=== PATIENT | male | born 1965 ===

== ENCOUNTER 2021-01-05 15:13 | Inpatient (IN) | payer OTHER ==
[2021-01-05] MEDS ORDERED: MENTHOL/PHENOL 1 EACH UD MM PRN (21:45)
[2021-01-05] MEDS ORDERED: cloNIDine HCL 0.1 MG TABLET PO PRN (21:45)
[2021-01-05] MEDS ORDERED: ACETAMINOPHEN 325 MG TABLET (FP) PO PRN ×2 (21:45)
[2021-01-05] MEDS ORDERED: DICYCLOMINE HCL 10 MG CAPSULE PO PRN (21:45)
[2021-01-05] MEDS ORDERED: MAGNESIUM CITRATE 300 ML BOTTLE PO PRN (21:45)
[2021-01-05] MEDS ORDERED: NICOTINE POLACRILEX 2 MG GUM BUC PRN (21:45)
[2021-01-05] MEDS ORDERED: ONDANSETRON *ODT* 4 MG TABLET SL PRN (21:45)
[2021-01-05] MEDS ORDERED: MAGNESIUM HYDROX 2400MG/30ML ORAL SUSPENSION 30 ML CUP PO PRN (21:45)
[2021-01-05] MEDS ORDERED: METHOCARBAMOL 500 MG TABLET PO PRN (21:45)
[2021-01-05] MEDS ORDERED: NALOXONE HCL 0.4 MG/ML VIAL IM PRN (21:45)
[2021-01-05] MEDS ORDERED: METHADONE HCL 10 MG TABLET (FOR DETOX USE ONLY) PO ONE (21:45)
[2021-01-05] MEDS ORDERED: chlordiazePOXIDE HCL 25 MG CAPSULE PO PRN (21:45)
[2021-01-05] MEDS ORDERED: P-EPHED 60MG/TRIPROLIDI 2.5MG TABLET PO PRN (21:45)
[2021-01-05] MEDS ORDERED: MAG HYDROX/AL HYDROX/SIMETH 30 ML UNIT-DOSE CUP PO PRN (21:45)
[2021-01-05] MEDS ORDERED: BISMUTH SUBSALICYLATE 524 MG/30 ML UD PO PRN (21:45)
[2021-01-05] MEDS ORDERED: guaiFENesin 200 MG/10 ML 10 ML UNIT-DOSE CUPS PO PRN (21:45)
[2021-01-05 21:48] VITALS: BMI 18.1
[2021-01-05] MEDS: THIAMINE HCL 100 MG TABLET (FP) PO SCH (23:12)
[2021-01-05] MEDS: MELATONIN 5 MG TABLETS PO SCH (23:12)
[2021-01-05] MEDS ORDERED: chlordiazePOXIDE HCL 25 MG CAPSULE ONE (23:12)
[2021-01-05] MEDS ORDERED: METHADONE HCL 10 MG TABLET (FOR DETOX USE ONLY) ONE (23:12)
[2021-01-05] MEDS: chlordiazePOXIDE HCL 25 MG CAPSULE PO SCH (23:13)
[2021-01-06] MEDS ORDERED: chlordiazePOXIDE HCL 25 MG CAPSULE ONE (05:32)
[2021-01-06] MEDS: chlordiazePOXIDE HCL 25 MG CAPSULE PO SCH ×4 (05:36→22:30)
[2021-01-06] MEDS ORDERED: METHADONE (DETOX) 20 MG, METHADONE (DETOX) 5 MG PO ONE (10:00)
[2021-01-06] MEDS ORDERED: METHADONE HCL 5 MG TABLET (FOR DETOX USE ONLY) ONE (10:01)
[2021-01-06] MEDS ORDERED: METHADONE HCL 10 MG TABLET (FOR DETOX USE ONLY) ONE (10:01)
[2021-01-06] MEDS: ERYTHROMYCIN 0.5% OPHTHALMIC OINTMENT 3.5 GM TUBE OD SCH (10:03)
[2021-01-06] MEDS: PRENATAL VITAMINS W/ FOLIC ACID TABLET (FP) PO SCH (10:04)
[2021-01-06] MEDS: NICOTINE 21 MG/24 HOURS TOPICAL PATCH TD SCH (10:04)
[2021-01-06 11:41] LABS: HEMATOCRIT 36.4 % (35.4-49); HEMOGLOBIN 11.9 GM/dL (11.7-16.9); MCH 31.8 pg (25.7-33.7); MCHC 32.8 g/dl (32.0-35.9); MEAN PLT VOLUME 8.4 fl (7.5-11.1); PLATELET COUNT 245 K/MM3 (134-434); RBC 3.75 M/mm3 (4.00-5.60); RDW 13.1 % (11.9-15.9); WHITE BLOOD COUNT 6.6 K/mm3 (4.0-10.0)
[2021-01-06 11:49] LABS: POTASSIUM 4.2 mmol/L (3.5-5.1)
[2021-01-06 11:53] LABS: BLOOD UREA NITROGEN 16.7 mg/dL (7-18); CALCIUM 8.5 mg/dL (8.5-10.1)
[2021-01-06 11:54] LABS: ALBUMIN 3.2 g/dl (3.4-5.0)
[2021-01-06 11:57] LABS: CREATININE 0.9 mg/dL (0.55-1.3)
[2021-01-06 11:58] LABS: BILIRUBIN,TOTAL 0.7 mg/dL (0.2-1); TOT PROT 6.1 g/dl (6.4-8.2)
[2021-01-06] MEDS: MELATONIN 5 MG TABLETS PO SCH (22:30)
[2021-01-06] MEDS: THIAMINE HCL 100 MG TABLET (FP) PO SCH (22:30)
[2021-01-07] MEDS: chlordiazePOXIDE HCL 25 MG CAPSULE PO SCH ×4 (05:26→22:52)
[2021-01-07] MEDS: IBUPROFEN 400 MG TABLET (FP) PO PRN (05:27)
[2021-01-07] MEDS ORDERED: METHADONE HCL 10 MG TABLET (FOR DETOX USE ONLY) PO ONE (10:00)
[2021-01-07] MEDS: PRENATAL VITAMINS W/ FOLIC ACID TABLET (FP) PO SCH (10:16)
[2021-01-07] MEDS: NICOTINE 21 MG/24 HOURS TOPICAL PATCH TD SCH (10:18)
[2021-01-07] MEDS: ERYTHROMYCIN 0.5% OPHTHALMIC OINTMENT 3.5 GM TUBE OD SCH (11:47)
[2021-01-07] MEDS ORDERED: LACTULOSE 20 GM/30 ML UDC (FOR ORAL USE ONLY) PO ONE (15:56)
[2021-01-07 16:48] LABS: URINE APPEARANCE CLEAR; URINE BILIRUBIN NEGATIVE (NEGATIVE); URINE COLOR YELLOW; URINE GLUCOSE (UA) NEGATIVE (NEGATIVE); URINE KETONE NEGATIVE (NEGATIVE); URINE LEUK ESTERASE NEGATIVE (NEGATIVE); URINE NITRITE NEGATIVE (NEGATIVE); URINE PROTEIN NEGATIVE (NEGATIVE); URINE UROBILINOGEN 0.2 mg/dL (0.2-1.0)
[2021-01-07] MEDS: THIAMINE HCL 100 MG TABLET (FP) PO SCH (22:49)
[2021-01-07] MEDS: LACTULOSE 20 GM/30 ML UDC (FOR ORAL USE ONLY) PO SCH (22:50)
[2021-01-07] MEDS: MELATONIN 5 MG TABLETS PO SCH (22:52)
[2021-01-08] MEDS ORDERED: chlordiazePOXIDE HCL 10 MG CAPSULE PO PRN
[2021-01-08] MEDS: LACTULOSE 20 GM/30 ML UDC (FOR ORAL USE ONLY) PO SCH ×3 (05:22→22:42)
[2021-01-08] MEDS: chlordiazePOXIDE HCL 10 MG CAPSULE PO SCH ×4 (05:22→22:43)
[2021-01-08] MEDS ORDERED: METHADONE HCL 5 MG TABLET (FOR DETOX USE ONLY) ONE (09:21)
[2021-01-08] MEDS ORDERED: METHADONE HCL 10 MG TABLET (FOR DETOX USE ONLY) ONE (09:21)
[2021-01-08] MEDS ORDERED: METHADONE (DETOX) 10 MG, METHADONE (DETOX) 5 MG PO ONE (10:00)
[2021-01-08] MEDS: ERYTHROMYCIN 0.5% OPHTHALMIC OINTMENT 3.5 GM TUBE OD SCH (10:16)
[2021-01-08] MEDS: PRENATAL VITAMINS W/ FOLIC ACID TABLET (FP) PO SCH (10:17)
[2021-01-08] MEDS: NICOTINE 21 MG/24 HOURS TOPICAL PATCH TD SCH (10:18)
[2021-01-08] MEDS: IBUPROFEN 400 MG TABLET (FP) PO PRN (14:14)
[2021-01-08] MEDS: THIAMINE HCL 100 MG TABLET (FP) PO SCH (22:42)
[2021-01-08] MEDS: MELATONIN 5 MG TABLETS PO SCH (22:42)
[2021-01-09] MEDS: LACTULOSE 20 GM/30 ML UDC (FOR ORAL USE ONLY) PO SCH ×3 (05:34→21:45)
[2021-01-09] MEDS: chlordiazePOXIDE HCL 10 MG CAPSULE PO SCH ×2 (05:34→18:25)
[2021-01-09] MEDS ORDERED: METHADONE HCL 10 MG TABLET (FOR DETOX USE ONLY) PO ONE (10:00)
[2021-01-09] MEDS ORDERED: MASKS NR ONE (10:49)
[2021-01-09] MEDS: NICOTINE 21 MG/24 HOURS TOPICAL PATCH TD SCH (10:50)
[2021-01-09] MEDS: ERYTHROMYCIN 0.5% OPHTHALMIC OINTMENT 3.5 GM TUBE OD SCH (10:50)
[2021-01-09] MEDS: PRENATAL VITAMINS W/ FOLIC ACID TABLET (FP) PO SCH (10:50)
[2021-01-09] MEDS: MELATONIN 5 MG TABLETS PO SCH (21:45)
[2021-01-09] MEDS: THIAMINE HCL 100 MG TABLET (FP) PO SCH (21:45)
[2021-01-10] MEDS ORDERED: chlordiazePOXIDE HCL 10 MG CAPSULE PO ONE (05:00)
[2021-01-10] MEDS: LACTULOSE 20 GM/30 ML UDC (FOR ORAL USE ONLY) PO SCH (05:29)
[2021-01-10] MEDS ORDERED: METHADONE HCL 5 MG TABLET (FOR DETOX USE ONLY) PO ONE (06:00)
[2021-01-10 09:43] VITALS: BP 127/76; PULSE 98; TEMP 99.3
[2021-01-10] MEDS: NICOTINE 21 MG/24 HOURS TOPICAL PATCH TD SCH (10:31)
[2021-01-10] MEDS: PRENATAL VITAMINS W/ FOLIC ACID TABLET (FP) PO SCH (10:33)
[2021-01-10] MEDS: ERYTHROMYCIN 0.5% OPHTHALMIC OINTMENT 3.5 GM TUBE OD SCH (10:33)
== END 2021-01-10 10:53 | disposition other institution (70) | DRG 773 ==
LOC: YASAS 15:13 → Y6N 01-06 09:12
PROVIDERS: ADMIT Allergy & Immunology; ATTEND Allergy & Immunology
PROC: HZ2ZZZZ Detoxification Services for Substance Abuse Treatment (ICD-10-PCS; principal; 2021-01-06)
DX: F11.23 Opioid dependence with withdrawal (principal); F10.230 Alcohol dependence with withdrawal, uncomplicated; F14.20 Cocaine dependence, uncomplicated; F17.210 Nicotine dependence, cigarettes, uncomplicated; E78.5 Hyperlipidemia, unspecified; K21.9 Gastro-esophageal reflux disease without esophagitis; H11.31 Conjunctival hemorrhage, right eye; Z20.1 Contact with and (suspected) exposure to tuberculosis; R79.89 Other specified abnormal findings of blood chemistry; Z91.018 Allergy to other foods; Z59.0 Homelessness
CPT/HCPCS: 36415; 71046-TC-FY; 80053; 81003; 82140; 85027; 86780; 93005; 93010; C9803; Q0162; U0003

== ENCOUNTER 2021-01-10 11:04 | Inpatient (IN) | payer OTHER ==
[2021-01-10] MEDS ORDERED: MAG HYDROX/AL HYDROX/SIMETH 30 ML UNIT-DOSE CUP PO PRN (12:05)
[2021-01-10] MEDS ORDERED: guaiFENesin 200 MG/10 ML 10 ML UNIT-DOSE CUPS PO PRN (12:05)
[2021-01-10] MEDS ORDERED: P-EPHED 60MG/TRIPROLIDI 2.5MG TABLET PO PRN (12:05)
[2021-01-10] MEDS ORDERED: ACETAMINOPHEN 325 MG TABLET (FP) PO PRN (12:05)
[2021-01-10] MEDS ORDERED: MENTHOL/PHENOL 1 EACH UD MM PRN (12:05)
[2021-01-10] MEDS ORDERED: MAGNESIUM HYDROX 2400MG/30ML ORAL SUSPENSION 30 ML CUP PO PRN (12:05)
[2021-01-10] MEDS ORDERED: NICOTINE POLACRILEX 2 MG GUM BUC PRN (12:05)
[2021-01-10] MEDS ORDERED: MAGNESIUM CITRATE 300 ML BOTTLE PO PRN (12:05)
[2021-01-10] MEDS: METHOCARBAMOL 500 MG TABLET PO SCH ×3 (14:16→21:40)
[2021-01-10] MEDS: MELATONIN 5 MG TABLETS PO SCH (21:40)
[2021-01-10] MEDS: LACTULOSE 20 GM/30 ML UDC (FOR ORAL USE ONLY) PO SCH (21:40)
[2021-01-10] MEDS: THIAMINE HCL 100 MG TABLET (FP) PO SCH (21:40)
[2021-01-11] MEDS: LOPERAMIDE HCL 2 MG CAPSULE PO PRN ×2 (06:38→19:48)
[2021-01-11] MEDS ORDERED: NICOTINE 7 MG/24 HOURS TOPICAL PATCH TD SCH (10:00)
[2021-01-11] MEDS: NICOTINE 21 MG/24 HOURS TOPICAL PATCH TD SCH (10:51)
[2021-01-11] MEDS: PRENATAL VITAMINS W/ FOLIC ACID TABLET (FP) PO SCH (10:51)
[2021-01-11] MEDS: METHOCARBAMOL 500 MG TABLET PO SCH ×4 (10:51→21:07)
[2021-01-11] MEDS: LACTULOSE 20 GM/30 ML UDC (FOR ORAL USE ONLY) PO SCH ×3 (10:51→21:07)
[2021-01-11] MEDS: ERYTHROMYCIN 0.5% OPHTHALMIC OINTMENT 3.5 GM TUBE OD SCH (10:57)
[2021-01-11] MEDS: IBUPROFEN 400 MG TABLET (FP) PO PRN (15:09)
[2021-01-11] MEDS: PRAMOXINE HCL/MINERAL OIL/ZNOX 30 GM TUBE RC SCH (21:07)
[2021-01-11] MEDS: THIAMINE HCL 100 MG TABLET (FP) PO SCH (21:07)
[2021-01-11] MEDS: MELATONIN 5 MG TABLETS PO SCH (21:07)
[2021-01-12] MEDS: LACTULOSE 20 GM/30 ML UDC (FOR ORAL USE ONLY) PO SCH ×3 (06:07→21:41)
[2021-01-12] MEDS: METHOCARBAMOL 500 MG TABLET PO SCH ×4 (10:30→21:42)
[2021-01-12] MEDS: PRENATAL VITAMINS W/ FOLIC ACID TABLET (FP) PO SCH (10:30)
[2021-01-12] MEDS: NICOTINE 21 MG/24 HOURS TOPICAL PATCH TD SCH (10:30)
[2021-01-12] MEDS: ERYTHROMYCIN 0.5% OPHTHALMIC OINTMENT 3.5 GM TUBE OD SCH (10:31)
[2021-01-12] MEDS: WITCH HAZEL 50% (TUCKS) 40 PAD/JAR PAD TP PRN (10:34)
[2021-01-12] MEDS: MELATONIN 5 MG TABLETS PO SCH (21:42)
[2021-01-12] MEDS: THIAMINE HCL 100 MG TABLET (FP) PO SCH (21:42)
[2021-01-12] MEDS: PRAMOXINE HCL/MINERAL OIL/ZNOX 30 GM TUBE RC SCH (21:43)
[2021-01-13] MEDS: LACTULOSE 20 GM/30 ML UDC (FOR ORAL USE ONLY) PO SCH ×3 (06:00→21:03)
[2021-01-13] MEDS: ERYTHROMYCIN 0.5% OPHTHALMIC OINTMENT 3.5 GM TUBE OD SCH (10:44)
[2021-01-13] MEDS: PRENATAL VITAMINS W/ FOLIC ACID TABLET (FP) PO SCH (10:44)
[2021-01-13] MEDS: NICOTINE 21 MG/24 HOURS TOPICAL PATCH TD SCH (10:44)
[2021-01-13] MEDS: METHOCARBAMOL 500 MG TABLET PO SCH ×4 (10:44→21:05)
[2021-01-13] MEDS: WITCH HAZEL 50% (TUCKS) 40 PAD/JAR PAD TP PRN (10:45)
[2021-01-13] MEDS: MELATONIN 5 MG TABLETS PO SCH (21:03)
[2021-01-13] MEDS: THIAMINE HCL 100 MG TABLET (FP) PO SCH (21:03)
[2021-01-13] MEDS: PRAMOXINE HCL/MINERAL OIL/ZNOX 30 GM TUBE RC SCH (21:05)
[2021-01-14] MEDS: LACTULOSE 20 GM/30 ML UDC (FOR ORAL USE ONLY) PO SCH ×3 (05:57→21:32)
[2021-01-14] MEDS: PRENATAL VITAMINS W/ FOLIC ACID TABLET (FP) PO SCH (10:41)
[2021-01-14] MEDS: METHOCARBAMOL 500 MG TABLET PO SCH ×4 (10:41→21:32)
[2021-01-14] MEDS: ERYTHROMYCIN 0.5% OPHTHALMIC OINTMENT 3.5 GM TUBE OD SCH (10:41)
[2021-01-14] MEDS: NICOTINE 21 MG/24 HOURS TOPICAL PATCH TD SCH (10:41)
[2021-01-14] MEDS: hydrOXYzine PAMOATE 25 MG CAPSULE (FP) PO PRN (19:06)
[2021-01-14] MEDS: MELATONIN 5 MG TABLETS PO SCH (21:32)
[2021-01-14] MEDS: THIAMINE HCL 100 MG TABLET (FP) PO SCH (21:32)
[2021-01-14] MEDS: PRAMOXINE HCL/MINERAL OIL/ZNOX 30 GM TUBE RC SCH (21:33)
[2021-01-15] MEDS: LACTULOSE 20 GM/30 ML UDC (FOR ORAL USE ONLY) PO SCH ×3 (06:09→21:10)
[2021-01-15] MEDS: NICOTINE 21 MG/24 HOURS TOPICAL PATCH TD SCH (10:32)
[2021-01-15] MEDS: hydrOXYzine PAMOATE 25 MG CAPSULE (FP) PO PRN ×2 (10:32→14:50)
[2021-01-15] MEDS: ERYTHROMYCIN 0.5% OPHTHALMIC OINTMENT 3.5 GM TUBE OD SCH (10:32)
[2021-01-15] MEDS: PRENATAL VITAMINS W/ FOLIC ACID TABLET (FP) PO SCH (10:32)
[2021-01-15] MEDS: METHOCARBAMOL 500 MG TABLET PO SCH ×4 (10:32→21:10)
[2021-01-15] MEDS: THIAMINE HCL 100 MG TABLET (FP) PO SCH (21:10)
[2021-01-15] MEDS: MELATONIN 5 MG TABLETS PO SCH (21:10)
[2021-01-15] MEDS: PRAMOXINE HCL/MINERAL OIL/ZNOX 30 GM TUBE RC SCH (21:10)
[2021-01-16] MEDS: LACTULOSE 20 GM/30 ML UDC (FOR ORAL USE ONLY) PO SCH ×3 (06:05→21:44)
[2021-01-16] MEDS: NICOTINE 21 MG/24 HOURS TOPICAL PATCH TD SCH (10:42)
[2021-01-16] MEDS: METHOCARBAMOL 500 MG TABLET PO SCH ×4 (10:42→21:45)
[2021-01-16] MEDS: PRENATAL VITAMINS W/ FOLIC ACID TABLET (FP) PO SCH (10:43)
[2021-01-16] MEDS: MELATONIN 5 MG TABLETS PO SCH (21:45)
[2021-01-16] MEDS: THIAMINE HCL 100 MG TABLET (FP) PO SCH (21:45)
[2021-01-16] MEDS: PRAMOXINE HCL/MINERAL OIL/ZNOX 30 GM TUBE RC SCH (21:46)
[2021-01-17] MEDS: hydrOXYzine PAMOATE 25 MG CAPSULE (FP) PO PRN ×3 (00:46→21:15)
[2021-01-17] MEDS: LACTULOSE 20 GM/30 ML UDC (FOR ORAL USE ONLY) PO SCH ×3 (06:59→21:16)
[2021-01-17] MEDS: METHOCARBAMOL 500 MG TABLET PO SCH ×4 (10:26→21:15)
[2021-01-17] MEDS: PRENATAL VITAMINS W/ FOLIC ACID TABLET (FP) PO SCH (10:26)
[2021-01-17] MEDS: NICOTINE 21 MG/24 HOURS TOPICAL PATCH TD SCH (10:27)
[2021-01-17] MEDS: MELATONIN 5 MG TABLETS PO SCH (21:15)
[2021-01-17] MEDS: THIAMINE HCL 100 MG TABLET (FP) PO SCH (21:15)
[2021-01-17] MEDS: PRAMOXINE HCL/MINERAL OIL/ZNOX 30 GM TUBE RC SCH (21:16)
[2021-01-18] MEDS: LACTULOSE 20 GM/30 ML UDC (FOR ORAL USE ONLY) PO SCH ×3 (06:22→21:30)
[2021-01-18] MEDS: METHOCARBAMOL 500 MG TABLET PO SCH ×4 (10:25→21:30)
[2021-01-18] MEDS: PRENATAL VITAMINS W/ FOLIC ACID TABLET (FP) PO SCH (10:25)
[2021-01-18] MEDS: NICOTINE 21 MG/24 HOURS TOPICAL PATCH TD SCH (10:25)
[2021-01-18] MEDS: THIAMINE HCL 100 MG TABLET (FP) PO SCH (21:30)
[2021-01-18] MEDS: MELATONIN 5 MG TABLETS PO SCH (21:30)
[2021-01-18] MEDS: hydrOXYzine PAMOATE 25 MG CAPSULE (FP) PO PRN (21:31)
[2021-01-19] MEDS: LACTULOSE 20 GM/30 ML UDC (FOR ORAL USE ONLY) PO SCH ×3 (05:52→21:00)
[2021-01-19] MEDS: PRENATAL VITAMINS W/ FOLIC ACID TABLET (FP) PO SCH (10:05)
[2021-01-19] MEDS: METHOCARBAMOL 500 MG TABLET PO SCH ×4 (10:05→21:00)
[2021-01-19] MEDS: NICOTINE 21 MG/24 HOURS TOPICAL PATCH TD SCH (10:05)
[2021-01-19] MEDS: MELATONIN 5 MG TABLETS PO SCH (21:00)
[2021-01-19] MEDS: hydrOXYzine PAMOATE 25 MG CAPSULE (FP) PO PRN (21:00)
[2021-01-19] MEDS: THIAMINE HCL 100 MG TABLET (FP) PO SCH (21:00)
[2021-01-20] MEDS: LACTULOSE 20 GM/30 ML UDC (FOR ORAL USE ONLY) PO SCH ×3 (06:16→21:22)
[2021-01-20] MEDS: PRENATAL VITAMINS W/ FOLIC ACID TABLET (FP) PO SCH (10:03)
[2021-01-20] MEDS: NICOTINE 21 MG/24 HOURS TOPICAL PATCH TD SCH (10:03)
[2021-01-20] MEDS: METHOCARBAMOL 500 MG TABLET PO SCH ×4 (10:04→21:22)
[2021-01-20] MEDS: hydrOXYzine PAMOATE 25 MG CAPSULE (FP) PO PRN (21:22)
[2021-01-20] MEDS: MELATONIN 5 MG TABLETS PO SCH (21:22)
[2021-01-20] MEDS: THIAMINE HCL 100 MG TABLET (FP) PO SCH (21:22)
[2021-01-21] MEDS: LACTULOSE 20 GM/30 ML UDC (FOR ORAL USE ONLY) PO SCH ×3 (06:04→21:09)
[2021-01-21] MEDS: METHOCARBAMOL 500 MG TABLET PO SCH ×4 (10:44→21:09)
[2021-01-21] MEDS: PRENATAL VITAMINS W/ FOLIC ACID TABLET (FP) PO SCH (10:44)
[2021-01-21] MEDS: NICOTINE 21 MG/24 HOURS TOPICAL PATCH TD SCH (10:45)
[2021-01-21] MEDS: hydrOXYzine PAMOATE 25 MG CAPSULE (FP) PO PRN (10:45)
[2021-01-21] MEDS: IBUPROFEN 400 MG TABLET (FP) PO PRN (21:10)
[2021-01-21] MEDS: THIAMINE HCL 100 MG TABLET (FP) PO SCH (21:10)
[2021-01-21] MEDS: MELATONIN 5 MG TABLETS PO SCH (21:10)
[2021-01-22] MEDS: LACTULOSE 20 GM/30 ML UDC (FOR ORAL USE ONLY) PO SCH ×3 (06:02→21:26)
[2021-01-22] MEDS: NICOTINE 21 MG/24 HOURS TOPICAL PATCH TD SCH (09:46)
[2021-01-22] MEDS: METHOCARBAMOL 500 MG TABLET PO SCH ×4 (09:46→21:27)
[2021-01-22] MEDS: PRENATAL VITAMINS W/ FOLIC ACID TABLET (FP) PO SCH (09:46)
[2021-01-22] MEDS: hydrOXYzine PAMOATE 25 MG CAPSULE (FP) PO PRN (21:27)
[2021-01-22] MEDS: THIAMINE HCL 100 MG TABLET (FP) PO SCH (21:27)
[2021-01-22] MEDS: IBUPROFEN 400 MG TABLET (FP) PO PRN (21:27)
[2021-01-22] MEDS: MELATONIN 5 MG TABLETS PO SCH (21:27)
[2021-01-23] MEDS: LACTULOSE 20 GM/30 ML UDC (FOR ORAL USE ONLY) PO SCH ×3 (06:04→21:13)
[2021-01-23] MEDS: PRENATAL VITAMINS W/ FOLIC ACID TABLET (FP) PO SCH (10:08)
[2021-01-23] MEDS: METHOCARBAMOL 500 MG TABLET PO SCH ×4 (10:09→21:13)
[2021-01-23] MEDS: NICOTINE 21 MG/24 HOURS TOPICAL PATCH TD SCH (10:09)
[2021-01-23] MEDS: hydrOXYzine PAMOATE 50 MG CAPSULE (FP) PO PRN ×2 (10:09→21:15)
[2021-01-23] MEDS: THIAMINE HCL 100 MG TABLET (FP) PO SCH (21:13)
[2021-01-23] MEDS: MELATONIN 5 MG TABLETS PO PRN (21:13)
[2021-01-23] MEDS: IBUPROFEN 400 MG TABLET (FP) PO PRN (21:14)
[2021-01-24] MEDS: hydrOXYzine PAMOATE 50 MG CAPSULE (FP) PO PRN ×3 (02:43→21:18)
[2021-01-24] MEDS: LACTULOSE 20 GM/30 ML UDC (FOR ORAL USE ONLY) PO SCH ×3 (06:02→21:18)
[2021-01-24] MEDS: METHOCARBAMOL 500 MG TABLET PO SCH ×4 (10:06→21:18)
[2021-01-24] MEDS: NICOTINE 21 MG/24 HOURS TOPICAL PATCH TD SCH (10:07)
[2021-01-24] MEDS: PRENATAL VITAMINS W/ FOLIC ACID TABLET (FP) PO SCH (10:07)
[2021-01-24] MEDS: THIAMINE HCL 100 MG TABLET (FP) PO SCH (21:19)
[2021-01-24] MEDS: IBUPROFEN 400 MG TABLET (FP) PO PRN (21:20)
[2021-01-25] MEDS: LACTULOSE 20 GM/30 ML UDC (FOR ORAL USE ONLY) PO SCH ×3 (06:12→21:06)
[2021-01-25] MEDS: NICOTINE 21 MG/24 HOURS TOPICAL PATCH TD SCH (10:04)
[2021-01-25] MEDS: METHOCARBAMOL 500 MG TABLET PO SCH ×4 (10:04→21:08)
[2021-01-25] MEDS: PRENATAL VITAMINS W/ FOLIC ACID TABLET (FP) PO SCH (10:04)
[2021-01-25] MEDS: THIAMINE HCL 100 MG TABLET (FP) PO SCH (21:06)
[2021-01-26] MEDS: LACTULOSE 20 GM/30 ML UDC (FOR ORAL USE ONLY) PO SCH ×3 (05:58→21:22)
[2021-01-26] MEDS: PRENATAL VITAMINS W/ FOLIC ACID TABLET (FP) PO SCH (09:57)
[2021-01-26] MEDS: NICOTINE 21 MG/24 HOURS TOPICAL PATCH TD SCH (09:57)
[2021-01-26] MEDS: METHOCARBAMOL 500 MG TABLET PO SCH ×4 (09:57→21:22)
[2021-01-26] MEDS: hydrOXYzine PAMOATE 50 MG CAPSULE (FP) PO PRN (21:21)
[2021-01-26] MEDS: MELATONIN 5 MG TABLETS PO PRN (21:21)
[2021-01-26] MEDS: THIAMINE HCL 100 MG TABLET (FP) PO SCH (21:22)
[2021-01-27] MEDS: LACTULOSE 20 GM/30 ML UDC (FOR ORAL USE ONLY) PO SCH ×3 (06:01→21:03)
[2021-01-27] MEDS ORDERED: PT OWN MED DRAWER 7, Y5N ONE (09:25)
[2021-01-27] MEDS: PRENATAL VITAMINS W/ FOLIC ACID TABLET (FP) PO SCH (09:48)
[2021-01-27] MEDS: METHOCARBAMOL 500 MG TABLET PO SCH ×4 (09:48→21:03)
[2021-01-27] MEDS: NICOTINE 21 MG/24 HOURS TOPICAL PATCH TD SCH (09:48)
[2021-01-27] MEDS: hydrOXYzine PAMOATE 50 MG CAPSULE (FP) PO PRN (09:48)
[2021-01-27] MEDS: THIAMINE HCL 100 MG TABLET (FP) PO SCH (21:02)
[2021-01-27] MEDS: MELATONIN 5 MG TABLETS PO PRN (21:02)
[2021-01-28] MEDS: LACTULOSE 20 GM/30 ML UDC (FOR ORAL USE ONLY) PO SCH ×3 (06:26→21:31)
[2021-01-28] MEDS: NICOTINE 21 MG/24 HOURS TOPICAL PATCH TD SCH (10:22)
[2021-01-28] MEDS: METHOCARBAMOL 500 MG TABLET PO SCH ×4 (10:22→21:30)
[2021-01-28] MEDS: PRENATAL VITAMINS W/ FOLIC ACID TABLET (FP) PO SCH (10:22)
[2021-01-28] MEDS: hydrOXYzine PAMOATE 50 MG CAPSULE (FP) PO PRN ×2 (14:48→21:31)
[2021-01-28] MEDS: THIAMINE HCL 100 MG TABLET (FP) PO SCH (21:30)
[2021-01-28] MEDS: MELATONIN 5 MG TABLETS PO PRN (21:31)
[2021-01-29] MEDS: LACTULOSE 20 GM/30 ML UDC (FOR ORAL USE ONLY) PO SCH ×3 (06:10→21:07)
[2021-01-29] MEDS: hydrOXYzine PAMOATE 50 MG CAPSULE (FP) PO PRN ×2 (09:57→21:08)
[2021-01-29] MEDS: METHOCARBAMOL 500 MG TABLET PO SCH ×4 (09:57→21:40)
[2021-01-29] MEDS: PRENATAL VITAMINS W/ FOLIC ACID TABLET (FP) PO SCH (09:57)
[2021-01-29] MEDS: NICOTINE 21 MG/24 HOURS TOPICAL PATCH TD SCH (09:57)
[2021-01-29] MEDS: THIAMINE HCL 100 MG TABLET (FP) PO SCH (21:07)
[2021-01-29] MEDS: MELATONIN 5 MG TABLETS PO PRN (21:07)
[2021-01-30] MEDS: LACTULOSE 20 GM/30 ML UDC (FOR ORAL USE ONLY) PO SCH (06:09)
[2021-01-30] MEDS: METHOCARBAMOL 500 MG TABLET PO SCH ×4 (10:32→21:27)
[2021-01-30] MEDS: PRENATAL VITAMINS W/ FOLIC ACID TABLET (FP) PO SCH (10:32)
[2021-01-30] MEDS: NICOTINE 21 MG/24 HOURS TOPICAL PATCH TD SCH (10:32)
[2021-01-30] MEDS: THIAMINE HCL 100 MG TABLET (FP) PO SCH (21:27)
[2021-01-30] MEDS: MELATONIN 5 MG TABLETS PO PRN (21:27)
[2021-01-30] MEDS: hydrOXYzine PAMOATE 50 MG CAPSULE (FP) PO PRN (21:28)
[2021-01-31] MEDS: METHOCARBAMOL 500 MG TABLET PO SCH ×4 (09:42→21:41)
[2021-01-31] MEDS: PRENATAL VITAMINS W/ FOLIC ACID TABLET (FP) PO SCH (09:42)
[2021-01-31] MEDS: hydrOXYzine PAMOATE 50 MG CAPSULE (FP) PO PRN ×2 (09:42→21:43)
[2021-01-31] MEDS: NICOTINE 21 MG/24 HOURS TOPICAL PATCH TD SCH (09:43)
[2021-01-31] MEDS: MELATONIN 5 MG TABLETS PO PRN (21:42)
[2021-01-31] MEDS: THIAMINE HCL 100 MG TABLET (FP) PO SCH (21:43)
[2021-02-01] MEDS: NICOTINE 21 MG/24 HOURS TOPICAL PATCH TD SCH (10:21)
[2021-02-01] MEDS: hydrOXYzine PAMOATE 50 MG CAPSULE (FP) PO PRN ×2 (10:21→21:20)
[2021-02-01] MEDS: METHOCARBAMOL 500 MG TABLET PO SCH ×4 (10:21→21:20)
[2021-02-01] MEDS: PRENATAL VITAMINS W/ FOLIC ACID TABLET (FP) PO SCH (10:21)
[2021-02-01] MEDS: THIAMINE HCL 100 MG TABLET (FP) PO SCH (21:20)
[2021-02-01] MEDS: MELATONIN 5 MG TABLETS PO PRN (21:20)
[2021-02-02] MEDS: NICOTINE 21 MG/24 HOURS TOPICAL PATCH TD SCH (09:48)
[2021-02-02] MEDS: PRENATAL VITAMINS W/ FOLIC ACID TABLET (FP) PO SCH (09:48)
[2021-02-02] MEDS: hydrOXYzine PAMOATE 50 MG CAPSULE (FP) PO PRN ×2 (09:48→21:18)
[2021-02-02] MEDS: METHOCARBAMOL 500 MG TABLET PO SCH ×4 (09:48→21:18)
[2021-02-02] MEDS: THIAMINE HCL 100 MG TABLET (FP) PO SCH (21:18)
[2021-02-02] MEDS: MELATONIN 5 MG TABLETS PO PRN (21:18)
[2021-02-03] MEDS: PRENATAL VITAMINS W/ FOLIC ACID TABLET (FP) PO SCH (09:46)
[2021-02-03] MEDS: NICOTINE 21 MG/24 HOURS TOPICAL PATCH TD SCH (09:47)
[2021-02-03] MEDS: METHOCARBAMOL 500 MG TABLET PO SCH ×4 (09:47→21:07)
[2021-02-03] MEDS: THIAMINE HCL 100 MG TABLET (FP) PO SCH (21:07)
[2021-02-03] MEDS: MELATONIN 5 MG TABLETS PO PRN (21:08)
[2021-02-03] MEDS: hydrOXYzine PAMOATE 50 MG CAPSULE (FP) PO PRN (21:08)
[2021-02-04] MEDS: PRENATAL VITAMINS W/ FOLIC ACID TABLET (FP) PO SCH (10:05)
[2021-02-04] MEDS: hydrOXYzine PAMOATE 50 MG CAPSULE (FP) PO PRN ×2 (10:05→21:15)
[2021-02-04] MEDS: NICOTINE 21 MG/24 HOURS TOPICAL PATCH TD SCH (10:05)
[2021-02-04] MEDS: METHOCARBAMOL 500 MG TABLET PO SCH ×4 (10:05→21:15)
[2021-02-04] MEDS: THIAMINE HCL 100 MG TABLET (FP) PO SCH (21:15)
[2021-02-04] MEDS: MELATONIN 5 MG TABLETS PO PRN (21:15)
[2021-02-05] MEDS: METHOCARBAMOL 500 MG TABLET PO SCH ×4 (09:51→21:09)
[2021-02-05] MEDS: NICOTINE 21 MG/24 HOURS TOPICAL PATCH TD SCH (09:51)
[2021-02-05] MEDS: PRENATAL VITAMINS W/ FOLIC ACID TABLET (FP) PO SCH (09:51)
[2021-02-05] MEDS: hydrOXYzine PAMOATE 50 MG CAPSULE (FP) PO PRN ×2 (09:52→21:09)
[2021-02-05] MEDS: THIAMINE HCL 100 MG TABLET (FP) PO SCH (21:09)
[2021-02-05] MEDS: MELATONIN 5 MG TABLETS PO PRN (21:09)
[2021-02-06 06:28] VITALS: BP 142/86; PULSE 84; TEMP 97.7
[2021-02-06] MEDS: PRENATAL VITAMINS W/ FOLIC ACID TABLET (FP) PO SCH (09:34)
[2021-02-06] MEDS: NICOTINE 21 MG/24 HOURS TOPICAL PATCH TD SCH (09:35)
[2021-02-06] MEDS: METHOCARBAMOL 500 MG TABLET PO SCH (09:38)
== END 2021-02-06 09:43 | disposition home or self-care (01) | DRG 772 ==
LOC: YASAS 11:04 → Y3W 11:07
PROVIDERS: ADMIT Allergy & Immunology; ATTEND Allergy & Immunology
PROC: HZ42ZZZ Group Counseling for Substance Abuse Treatment, Cognitive-Behavioral (ICD-10-PCS; principal; 2021-01-10)
DX: F10.20 Alcohol dependence, uncomplicated (principal); F11.20 Opioid dependence, uncomplicated; F14.20 Cocaine dependence, uncomplicated; F17.210 Nicotine dependence, cigarettes, uncomplicated; F19.282 Other psychoactive substance dependence with psychoactive substance-induced sleep disorder; F19.24 Other psychoactive substance dependence with psychoactive substance-induced mood disorder; F43.10 Post-traumatic stress disorder, unspecified; E78.5 Hyperlipidemia, unspecified; G40.89 Other seizures; K21.9 Gastro-esophageal reflux disease without esophagitis; R79.89 Other specified abnormal findings of blood chemistry; Z62.810 Personal history of physical and sexual abuse in childhood; Z86.11 Personal history of tuberculosis; Z59.0 Homelessness; Z56.0 Unemployment, unspecified
CPT/HCPCS: 82140; C9803; U0003